=== PATIENT | female | born 1970 | race Caucasian/White ===

== ENCOUNTER 2020-11-12 05:22 | Emergency (ER) | payer OTHER ==
[~2020-11-12] VITALS: Ht 160 cm; Wt 64.4 kg
[~2020-11-12 05:22] MED LIST: BISACODYL5 MG PO; CEFDINIR300 MG; CIPRO500 MG PO; FLAGYL500 MG PO; IBUPROFEN 800800 M1 PO; IMURAN 50MG TAB50 M1 PO; LIALDA1.2 GM PO; METAMUCIL PAC1 UDPKT PO; NOHOMEMEDICATIONS; NORCO 5-325 TA1 EAC1 PO; PHENERGAN 25 MG25 M1 PO; PREDNISONE 10 M10 MG PO; PROTONIX40 M2 PO; SENOKOT-S1 TA1 PO; TESSALON PERLE100 M1 PO; TRANSDERM-SCO1 PATC1 TRANSDERM; ZPAK PO
[2020-11-12 06:10] LABS: URINE BILIRUBIN NEGATIVE (Negative); URINE BLOOD 2+ (Negative); URINE CLARITY CLEAR; URINE COLOR YELLOW; URINE GLUCOSE-RANDOM NEGATIVE (Negative); URINE KETONES NEGATIVE (Negative); URINE LEUKOCYTES-REFLEX NEGATIVE (Negative); URINE NITRITE-REFLEX NEGATIVE (Negative); URINE PROTEIN TRACE (Negative); URINE SPECIFIC GRAVITY >= 1.030 (1.005-1.030); URINE UROBILINOGEN 0.2 E.U./dl (0.2-1.0)
[2020-11-12 06:32] LABS: ABSOLUTE EOSINOPHILS 0.2 thou/uL (0.0-0.7); ABSOLUTE LYMPHOCYTES 1.4 thou/uL (0.8-5.3); ABSOLUTE MONOCYTES 0.7 thou/uL (0.0-1.2); ABSOLUTE NEUTROPHILS 4.2 thou/uL (1.6-8.1); BASOPHILS 0.6 %; HEMATOCRIT 39.4 % (37.0-47.0); HEMOGLOBIN 12.9 gm/dL (12.0-15.0); LYMPHOCYTES 20.9 %; MCH 28.5 pg (26.0-34.0); MCHC 32.7 g/dL (28.0-37.0); MONOCYTES 10.4 %; MPV 7.6 fl. (7.2-11.1); NUCLEATED RBCS 0 /100WBC; PLATELET COUNT* 309 thou/uL (150-400); POLYS 65.1 %; RBC 4.53 mil/uL (4.20-5.00); RDW-CV 14.9 % (10.5-14.5); WBC 6.5 thou/uL (4.0-11.0)
[2020-11-12 06:34] LABS: CASTS None Seen /LPF (None Seen); SQUAMOUS 4-10 Moderate /LPF (0-3); URINE WBC-REFLEX 0-5 Rare /HPF (0-5)
[2020-11-12 06:35] LABS: AMORPHOUS URATES Moderate /LPF (None Seen); BACTERIA-REFLEX 1-9 Few /HPF (None Seen); URINE RBC 3-10 Few /HPF (0-2)
[2020-11-12 06:41] LABS: CALCIUM 7.5 mg/dL (8.5-10.1); CREATININE 0.7 mg/dL (0.6-1.3); POTASSIUM 3.3 mmol/L (3.5-5.1)
[2020-11-12 06:45] LABS: ALBUMIN 3.4 g/dL (3.4-5.0); MAGNESIUM 1.5 mg/dL (1.8-2.4); TOTAL BILIRUBIN 0.6 mg/dL (<0.1-1.0); TOTAL PROTEIN 7.2 g/dL (6.4-8.2)
[2020-11-12] MEDS ORDERED: PREDNISONE 20 M20 M1 PO (09:35)
[2020-11-12] MEDS ORDERED: CIPROFLOXACIN500 M1 PO (09:35)
[2020-11-12 09:54] VITALS: BP 110/58
== END 2020-11-12 09:54 | disposition still patient (30) ==
LOC: M.ERS 05:22
PROVIDERS: Emergency Medicine
DX: R19.7 Diarrhea, unspecified (principal); Z20.822 Contact with and (suspected) exposure to COVID-19; M41.9 Scoliosis, unspecified; Z88.6 Allergy status to analgesic agent; Z88.8 Allergy status to other drugs, medicaments and biological substances; Z90.49 Acquired absence of other specified parts of digestive tract

== ENCOUNTER 2020-11-18 22:25 | Emergency (ER) | payer OTHER ==
[~2020-11-18] VITALS: Ht 160 cm; Wt 108.9 kg
[~2020-11-18 22:25] MED LIST changes: +CIPROFLOXACIN500 M1 PO; +PREDNISONE 20 M20 M1 PO
[2020-11-18 23:40] LABS: ABSOLUTE BASOPHILS 0.1 thou/uL (0.0-0.2); ABSOLUTE LYMPHOCYTES 2.5 thou/uL (0.8-5.3); ABSOLUTE NEUTROPHILS 6.7 thou/uL (1.6-8.1); BASOPHILS 0.6 %; EOSINOPHILS 0.5 %; HEMATOCRIT 36.3 % (37.0-47.0); LYMPHOCYTES 24.2 %; MCH 28.6 pg (26.0-34.0); MCV 86.8 fL (80.0-100.0); NUCLEATED RBCS 0 /100WBC; PLATELET COUNT* 365 thou/uL (150-400); POLYS 64.7 %; RBC 4.18 mil/uL (4.20-5.00); RDW-CV 14.8 % (10.5-14.5); WBC 10.3 thou/uL (4.0-11.0)
[2020-11-18 23:50] LABS: CREATININE 0.9 mg/dL (0.6-1.3); POTASSIUM 3.5 mmol/L (3.5-5.1)
[2020-11-18 23:56] LABS: ALBUMIN 2.9 g/dL (3.4-5.0); TOTAL BILIRUBIN 0.2 mg/dL (<0.1-1.0); TOTAL PROTEIN 6.2 g/dL (6.4-8.2)
[2020-11-19 00:45] VITALS: BP 137/88
== END 2020-11-19 00:47 | disposition home or self-care (01) ==
LOC: M.ERS 22:25
PROVIDERS: Personal Emergency Response Attendant
DX: R60.0 Localized edema (principal); T36.8X5A Adverse effect of other systemic antibiotics, initial encounter; T38.0X5A Adverse effect of glucocorticoids and synthetic analogues, initial encounter; M41.9 Scoliosis, unspecified; Z88.8 Allergy status to other drugs, medicaments and biological substances; Z90.49 Acquired absence of other specified parts of digestive tract; Y92.89 Other specified places as the place of occurrence of the external cause

== ENCOUNTER 2021-02-16 15:07 | Emergency (ER) | payer OTHER ==
[~2021-02-16] VITALS: Ht 160 cm; Wt 108.9 kg
[2021-02-16 15:12] VITALS: BP 187/94
[2021-02-16] MEDS ORDERED: FLEXERIL PO (15:50)
[2021-02-16] MEDS ORDERED: HYDROCODON-ACE1 EAC7 PO (15:50)
[2021-02-16] MEDS ORDERED: PREDNISONE50 MG PO (15:50)
== END 2021-02-16 16:10 | disposition home or self-care (01) ==
LOC: M.ERS 15:07
DX: M54.42 Lumbago with sciatica, left side (principal); Z88.6 Allergy status to analgesic agent; Z90.49 Acquired absence of other specified parts of digestive tract; Z98.890 Other specified postprocedural states

== ENCOUNTER 2021-06-16 09:30 | Emergency (ER) | payer OTHER ==
[~2021-06-16] VITALS: Ht 160 cm; Wt 108.9 kg
[~2021-06-16 09:30] MED LIST changes: +FLEXERIL PO; +HYDROCODON-ACE1 EAC7 PO; +PREDNISONE50 MG PO
[2021-06-16 11:38] VITALS: BP 156/96
== END 2021-06-16 11:40 | disposition home or self-care (01) ==
LOC: M.ERS 09:30
DX: J02.9 Acute pharyngitis, unspecified (principal); Z20.822 Contact with and (suspected) exposure to COVID-19; M79.10 Myalgia, unspecified site; R51.9 Headache, unspecified